=== PATIENT | female | born 1995 | race Two or more races ===

== ENCOUNTER 2018-09-07 16:31 | Emergency (ER) | payer MEDICAID, OTHER ==
[~2018-09-07] VITALS: Ht 165.1 cm; Wt 63.5 kg
[2018-09-07 18:32] VITALS: BP 106/66
== END 2018-09-07 19:08 | disposition home or self-care (01) ==
LOC: ER 16:39
DX: S20.211A Contusion of right front wall of thorax, initial encounter (principal); M94.0 Chondrocostal junction syndrome [Tietze]; W18.39XA Other fall on same level, initial encounter; Y93.89 Activity, other specified; Y99.8 Other external cause status; Y92.89 Other specified places as the place of occurrence of the external cause
CPT/HCPCS: 71046

== ENCOUNTER 2019-01-28 16:20 | Emergency (ER) | payer MEDICAID ==
[~2019-01-28] VITALS: Ht 167.6 cm; Wt 65.8 kg
[2019-01-28 16:30] VITALS: BP 108/60
== END 2019-01-28 18:21 | disposition left against medical advice (07) ==
LOC: ER 16:20
DX: S61.512A Laceration without foreign body of left wrist, initial encounter (principal); Z53.21 Procedure and treatment not carried out due to patient leaving prior to being seen by health care provider; W26.0XXA Contact with knife, initial encounter; Y93.89 Activity, other specified; Y92.89 Other specified places as the place of occurrence of the external cause; Y99.8 Other external cause status